=== PATIENT | female | born 1960 | race Caucasian/White ===

== ENCOUNTER 2019-08-07 17:05 | Emergency (ER) | payer MEDICARE, OTHER ==
--- NOTE | 2019-08-07 17:50 | ED ---
Hypertension - HPI Summary HPI Summary: The patient is a 59 y/o F presenting to [facility] accompanied by with a cc of worsening elevated BP for the last two weeks. She reports that she had seen Dr. Rodarte, her PCP, two weeks ago, and he found her BP was elevated. At the time, she attributed the symptoms to having caffeine that morning, but then she noticed that she had been experiencing a headache. Since then, she has been tracking her BP at home, and she has found that her BP is continuing to rise. 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 She has a headache now, and she also c/ o R neck pain, which she notes worsens when she doesnt take her Prednisone which is for RA. She states that she has been medication compliant for all of her prescriptions, which includes Amlodipine 5mg and Metoprolol. She notes that she doubled her Metoprolol dose today, but it did not improve her pressure. Symptoms rated 4/10 in severity. She denies any CP, although she had GERD symptoms today which she has hx of. No recent medication changes except for halting Dilaudid use for chronic pain in March 2019, but she has been controlling pain with hemp oil since. PMHx: thyroid disease, epilepsy, herniated disc. Former smoker, no EtOH, no substance use. Medications reviewed. Allergies noted. - History of Current Complaint Chief Complaint: EDHypertension Stated Complaint: HIGH BLOOD PRESSURE PER PT Time Seen by Provider: 08/07/19 17:16 Hx Obtained From: Patient Onset/Duration: Started Days Ago, Still Present, Worse Since - today Timing: Intermittent Reported Blood Pressure Prior To Arrival: 185/110 mmHg Aggravating Factor(s): Nothing Alleviating Factor(s): Nothing Associated Signs & Symptoms: Headaches, Other: - Negative: headache Current Medications: Beta Charles - Metoprolol, Ca Channel Charles - Amlodipine - Risk Factors Cardiac Risk Factors: Hypertension, Smoking - former - Allergies/Home Medications Allergies/Adverse Reactions: Allergies Allergy/AdvReac Type Severity Reaction Status Date / Time adalimumab [From Humira] Allergy Anaphylatic Verified 08/07/19 17:12 Shock leflunomide [From Arava] Allergy Unknown Verified 08/07/19 17:12 Reaction Details methotrexate Allergy Hallucinati Verified 08/07/19 17:12 ons Home Medications: Home Medications DOXYcycline CAP(*) [DOXYcycline 100MG CAP(*)] 100 mg PO BID 08/07/19 [History Confirmed 08/07/19] Divalproex DR TAB(*) [Depakote DR TAB(*)] 750 mg PO QAM 08/07/19 [History Confirmed 08/07/19] Hydroxychloroquine TAB* [Plaquenil TAB*] 200 mg PO BID 08/07/19 [History Confirmed 08/07/19] Levothyroxine TAB* [Synthroid TAB*] 75 mcg PO QAM 08/07/19 [History Confirmed ] PMH/Surg Hx/FS Hx/Imm Hx Endocrine/Hematology History: Reports: Other Endocrine/Hematological Disorders - RA Denies: Hx Diabetes Cardiovascular History: Reports: Hx Hypertension, Other Cardiovascular Problems/ Disorders - tested for and family hx of myothenia gravis GI History: Reports: Hx Gastroesophageal Reflux Disease - Cancer History Hx Chemotherapy: No Hx Radiation Therapy: No - Surgical History Surgical History: None Surgery Procedure, Year, and Place: none Infectious Disease History: No Infectious Disease History: Denies: Traveled Outside the [place] in Last 30 Days - Family History Known Family History: Positive: Other - myasthenia gravis - Social History Alcohol Use: None Hx Substance Use: No Substance Use Type: Reports: None Hx Tobacco Use: Yes Smoking Status (MU): Former Smoker Review of Systems Positive: Other - elevated BP. Negative: Chest Pain Positive: Myalgia - right neck Positive: Headache All Other Systems Reviewed And Are Negative: Yes Physical Exam - Summary Physical Exam Summary: Constitutional: Well-developed, Well-nourished, Alert. (-) Distressed Skin: Warm, Dry HENT: Normocephalic; Atraumatic Eyes: Conjunctiva normal Neck: Musculoskeletal ROM normal neck. (-) JVD, (-) Stridor, (-) Nuchal rigidity Cardio: Rhythm regular, rate normal, Heart sounds normal; Intact distal pulses; Radial pulses are 2+ and symmetric. (-) Murmur Pulmonary/Chest wall: Effort normal. (-) Respiratory distress, (-) Wheezes, (-) Rales Abd: Soft, (-) tenderness, (-) Distension, (-) Guarding, (-) Rebound Musculoskeletal: (-) Edema Lymph: (-) Cervical adenopathy Neuro: Alert, Oriented x3 Psych: Mood and affect Normal Triage Information Reviewed: Yes Vital Signs On Initial Exam: Initial Vitals Temp Pulse Resp BP Pulse Ox 98.1 F 67 19 208/125 98 08/07/19 17:07 08/07/19 17:07 08/07/19 17:07 08/07/19 17:07 08/07/19 17:07 Vital Signs Reviewed: Yes Procedures - Sedation Patient Received Moderate/Deep Sedation with Procedure: No Diagnostics - Vital Signs Vital Signs Temp Pulse Resp BP Pulse Ox 08/07/19 17:07 98.1 F 67 19 208/125 98 - Laboratory Result Diagrams: 08/07/19 17:43 08/07/19 17:43 Lab Statement: Any lab studies that have been ordered have been reviewed, and results considered in the medical decision making process. - EKG 1722 Cardiac Rate: NL - 60 BPM EKG Rhythm: Sinus Rhythm Summary of EKG Findings: An EKG at 1722 reveals normal sinus rhythm at rate of 60 BPM, nml axis, nml intervals. No STEMI. No acute changes. ED physician has reviewed and interpreted this EKG. Re-Evaluation - Re-Evaluation First Eval Re-Evaluation Time: 18:25 Change: Improved Comment: BP improved to 160s systolic following Amlodipine. Discussed results and plan for d/c. Hypertension Course/Dx - Course Course Of Treatment: 59 y/o F w hx HTN p/w elevated BP and headache. - PE well appearing, normal neuro exam. Reporting mild headache, given tylenol. Do not suspect intracranial abnormality. - -Based on my eval today, no evidence of end organ damage from hypertension. -chemistry wnl,no CLARE noted, no chest pain/ sob, neuro exam non-focal. Recommendations for BP management: -The pt likely suffers from essential hypertension. -In the absence of a hypertensive emergency, which the pt does not have, there is no indication to aggressively treat elevated blood pressure, even when it approaches the systolic ~180 range. -The patient needs mcc management of their blood pressure. -acutely, the pt may still have an elevated pressure, but over time the medication will take effect. -advised she can increase her amlodipine to 10 mg, given dose here. - Diagnoses Provider Diagnoses: Headache, HTN (hypertension) Discharge ED - Sign-Out/Discharge Documenting (check all that apply): Patient Departure - Patient will be discharged home. - Discharge Plan Condition: Stable Disposition: HOME Patient Education Materials: Acute Headache (ED), Chronic Hypertension (ED) Referrals: Pierre Rodarte MD [Primary Care Provider] - 3 Days Additional Instructions: You were seen in the emergency department for high blood pressure. Please take 10 mg of amlodipine, this is the 2 pills of your 5 mg dose. Please follow up with your primary care doctor, call the office tomorrow and let them know you were seen in ER for high blood pressure so they can adjust your medications. Please follow up with your primary care doctor in next 2-3 days and return to emergency department for worsening headaches, chest pain or concerning symptoms. It was a pleasure taking care of you today. - Billing Disposition and Condition Condition: STABLE Disposition: Home - Attestation Statements Document Initiated by Dc: Yes Documenting Scribe: America Mendez Provider For Whom Dc is Documenting (Include Credential): Dr. Corinne Ratliff MD Scribe Attestation: I, America Mendez, scribed for Dr. Corinne Ratliff MD on 08/07/19 at 2046. Scribe Documentation Reviewed: Yes Provider Attestation: The documentation as recorded by the America lara accurately reflects the service I personally performed and the decisions made by me, Dr. Corinne Ratliff MD Status of Dc Document: Viewed
[2019-08-07 17:58] LABS: ABS Basophils 0.1 10^3/ul (0-0.2); ABS Eosinophils 0.1 10^3/ul (0-0.6); ABS Lymphocytes 3.5 10^3/ul (1.0-4.8); ABS Monocytes 1.1 10^3/ul (0-0.8); ABS Neutrophils 8.6 10^3/ul (1.5-7.7); Eosinophil % 0.9 %; Hematocrit 39 % (35-47); Lymphocyte % 26.1 %; Mean Corpuscular HGB Conc 34 g/dL (31-36); Mean Corpuscular Hemoglobin 32 pg (27-31); Mean Corpuscular Volume 97 fL (80-97); Mean Platelet Volume 8.4 fL (7.4-10.4); Nucleated Red Blood Cells % 0.1; Platelet Count 274 10^3/uL (150-450); Red Cell Distribution Width 15 % (10-15); White Blood Count 13.4 10^3/uL (3.5-10.8)
[2019-08-07] MEDS ORDERED: amLODIPine TAB* 5 MG PO ONE (18:03)
[2019-08-07] MEDS ORDERED: Acetaminophen TAB* 325 MG PO ONE (18:04)
[2019-08-07 18:08] LABS: Albumin 4.3 g/dL (3.2-5.2); Calcium 9.3 mg/dL (8.6-10.3); Potassium 4.3 mmol/L (3.5-5.0); Total Bilirubin 0.4 mg/dL (0.2-1.0)
[2019-08-07 18:14] LABS: Albumin/Globulin Ratio 1.7 (1-3); EGFR African American 88.2 (>60); EGFR Non-African American 72.9 (>60); Globulin 2.6 g/dL (2-4); Total Protein 6.9 g/dL (6.4-8.9)
[2019-08-07 18:32] VITALS: BP 177/95
== END 2019-08-07 18:31 | disposition home or self-care (01) ==
LOC: ED 17:05
DX: I10 Essential (primary) hypertension (principal); R51 Headache; M54.9 Dorsalgia, unspecified; E03.9 Hypothyroidism, unspecified; G40.909 Epilepsy, unspecified, not intractable, without status epilepticus; Z79.890 Hormone replacement therapy; Z87.891 Personal history of nicotine dependence; K21.9 Gastro-esophageal reflux disease without esophagitis
CPT/HCPCS: 36415; 80053; 84484; 85025; 93005; 99283; A9270-GY